=== PATIENT | male | born 1990 | race Caucasian/White ===

== ENCOUNTER 2023-05-15 00:26 | Emergency (ER) | payer BC ==
[2023-05-15] MEDS ORDERED: fentaNYL 50 mcg/mL 1 mL Vial ONE (01:29)
[2023-05-15] MEDS ORDERED: Ondansetron PF 4 MG/2 ML Vial ONE ×2 (01:29→01:39)
[2023-05-15] MEDS ORDERED: Boostrix 0.5 ML (Tdap) VIAL (>/=7 yrs of age) ONE (01:29)
[2023-05-15] MEDS ORDERED: Ketorolac Tromethamine 30 MG/ML VIAL ONE (01:29)
== END 2023-05-15 03:44 | disposition home or self-care (01) ==
LOC: ERS 00:26
DX: S82.852A Displaced trimalleolar fracture of left lower leg, initial encounter for closed fracture (principal); I10 Essential (primary) hypertension; J45.909 Unspecified asthma, uncomplicated; F17.290 Nicotine dependence, other tobacco product, uncomplicated; Z23 Encounter for immunization; Y93.89 Activity, other specified
CPT/HCPCS: 90715; J1885; J2405; J3010

== ENCOUNTER 2023-05-15 04:56 | Observation (INO) | payer OTHER, BC ==
[2023-05-15] MEDS ORDERED: fentaNYL 50 mcg/mL 1 mL Vial ONE ×2 (05:10)
[2023-05-15] MEDS ORDERED: Ondansetron PF 4 MG/2 ML Vial ONE ×2 (05:10→10:41)
[2023-05-15] MEDS ORDERED: Ketamine 50 MG/ML (10ML VIAL) ONE (05:10)
[2023-05-15] MEDS ORDERED: Morphine 4 MG/ML VIAL ONE (06:13)
[2023-05-15 06:48] LABS: #Monocytes 0.9 thou/uL (0.11-0.59); #Neutrophils 9.8 thou/uL (1.40-6.50); %Basophils 0.3 % (0.0-1.0); %Eosinophils 0.1 % (0.0-10.0); %Lymphocytes 7.2 % (21.0-51.0); %Monocytes 7.5 % (0.0-10.0); %Neutrophils 84.5 % (42.0-75.0); Hemoglobin 12.5 g/dL (14.0-18.0); Mean Corpuscular Hemoglobin 27.7 pg (27.0-31.0); Mean Corpuscular Volume 83.8 fl (78.0-98.0); Mean Platelet Volume 10.5 fL (7.4-10.4); Platelet Count 218 10x3/uL (130-400); Red Blood Cell (RBC) Count 4.52 mill/uL (4.70-6.10); White Blood Cell (WBC) Count 11.5 10x3/uL (4.8-10.8)
[2023-05-15 07:07] LABS: INR-International Normal Ratio 1.1; PTT 28.7 sec (22.9-36.1); Prothrombin Time 14.9 sec (12.0-14.7)
[2023-05-15 07:14] LABS: ALT (SGPT) 23 U/L (8-55); AST (SGOT) 19 U/L (5-34); Albumin 4.1 g/dL (3.5-5.0); Alcohol 125.9 mg/dL (Less than 10); Alkaline Phosphatase 56 U/L (40-110); Anion Gap 10 mmol/L (10-20); BUN (Urea Nitrogen) 9 mg/dL (8.9-20.6); Bilirubin, Total 0.4 mg/dL (0.2-1.2); Calc. Creatinine Clearance 0 mL/min (70-130); Calcium 8.4 mg/dL (7.8-10.44); Carbon Dioxide 22 mmol/L (22-29); Chloride 113 mmol/L (98-107); Estimated GFR 95; Globulin 2.4 g/dL (2.4-3.5); Glucose 125 mg/dL (70-105); Potassium 3.9 mmol/L (3.5-5.1); Protein, Total 6.5 g/dL (6.0-8.3); Sodium 141 mmol/L (136-145)
[2023-05-15] MEDS ORDERED: D5 1/2 NS w/20 mEq KCL 1,000 ML IV SCH (07:30)
[2023-05-15] MEDS ORDERED: Glucagon 1 MG/ML KIT IM PRN (08:20)
[2023-05-15] MEDS ORDERED: Ondansetron PF 4 MG/2 ML Vial IVP PRN ×2 (08:20→11:30)
[2023-05-15] MEDS ORDERED: Ondansetron ODT 4 MG TAB PO PRN (08:20)
[2023-05-15] MEDS ORDERED: Dextrose 50% Abboject 50 ML SYRINGE SLOW IVP PRN (08:20)
[2023-05-15] MEDS ORDERED: hydrALAZINE 20 MG/ML VIAL SLOW IVP PRN (08:20)
[2023-05-15] MEDS ORDERED: Morphine 2 MG/ML VIAL SLOW IVP PRN (08:20)
[2023-05-15] MEDS ORDERED: Ipratropium/Albuterol 3 ML NEB NEB PRN (08:20)
[2023-05-15] MEDS ORDERED: Dextrose 5% in Water 1,000 ML IV PRN (08:20)
[2023-05-15] MEDS ORDERED: Morphine 4 MG/ML VIAL SLOW IVP PRN (08:21)
[2023-05-15] MEDS ORDERED: traMADol HCl 50 MG TAB PO PRN (08:22)
[2023-05-15] MEDS ORDERED: Cyclobenzaprine 10 MG TAB PO PRN (08:22)
[2023-05-15] MEDS ORDERED: Sodium Chloride 0.9% 1,000 ML IV SCH (08:30)
[2023-05-15 08:51] VITALS: BMI 32.7
[2023-05-15] MEDS: Acetaminophen 500 MG TAB PO SCH ×3 (08:52→21:21)
[2023-05-15] MEDS: Senokot S 8.6-50 MG TAB PO SCH ×2 (08:52→21:21)
[2023-05-15] MEDS: Polyethylene Glycol 3350 17 GM Packet PO SCH (08:52)
[2023-05-15] MEDS: Famotidine 20 MG TAB PO SCH ×2 (08:52→21:21)
[2023-05-15] MEDS ORDERED: Acetaminophen 325 MG TAB ONE (09:12)
[2023-05-15] MEDS ORDERED: CEFAZOLIN 2 GM VIAL ONE (09:12)
[2023-05-15] MEDS ORDERED: Sodium Chloride 0.9% 100 ML ONE (09:13)
[2023-05-15] MEDS ORDERED: Fentanyl 250 MCG/5 ML VIAL ONE (10:12)
[2023-05-15] MEDS ORDERED: Dexamethasone 20 MG/5 ML VIAL ONE (10:41)
[2023-05-15] MEDS ORDERED: PROPOFOL 200 MG/20 ML VIAL ONE (10:41)
[2023-05-15] MEDS ORDERED: Rocuronium Bromide 10 MG/ML (10ML VIAL) ONE (10:41)
[2023-05-15] MEDS ORDERED: Lidocaine 1% PF 5 ML VIAL ONE (10:41)
[2023-05-15] MEDS ORDERED: Meperidine HCl/PF 25 MG/ML VIAL SLOW IVP PRN (11:15)
[2023-05-15] MEDS ORDERED: Promethazine HCl 25 MG/ML VIAL IM PRN (11:15)
[2023-05-15] MEDS ORDERED: Ondansetron HCl/PF 4 MG/2 ML Vial IVP PRN (11:15)
[2023-05-15] MEDS ORDERED: Ketorolac Tromethamine 30 MG/ML VIAL IVP PRN (11:15)
[2023-05-15] MEDS ORDERED: HYDROmorphone 2 MG/ML VIAL SLOW IVP PRN (11:15)
[2023-05-15] MEDS ORDERED: Bupivacaine PF 0.5% 30 ML VIAL ONE ×2 (11:24→12:25)
[2023-05-15] MEDS ORDERED: Ondansetron ODT 4 MG TAB SL PRN (11:30)
[2023-05-15] MEDS ORDERED: Albuterol 200 PUFF (6.7GM INHALER) INH PRN (12:02)
[2023-05-15] MEDS ORDERED: SUGAMMADEX SODIUM 200 MG/2 ML VIAL ONE (12:39)
[2023-05-15] MEDS ORDERED: HYDROmorphone 2 MG/ML VIAL ONE (12:44)
[2023-05-15] MEDS: Ketorolac Tromethamine 30 MG/ML VIAL IVP SCH ×2 (13:43→18:17)
[2023-05-15] MEDS: traMADol HCl 50 MG TAB PO SCH ×2 (13:44→18:18)
[2023-05-15] MEDS ORDERED: Ketorolac Tromethamine 30 MG/ML VIAL ONE (13:46)
[2023-05-15] MEDS ORDERED: CEFAZOLIN 2 GM in Sodium Chloride 0.9% 100 ML IVPB SCH (14:00)
[2023-05-15] MEDS: Morphine 4 MG/ML VIAL SLOW IVP PRN (16:30)
[2023-05-15] MEDS: CEFAZOLIN 2 GM in Sodium Chloride 0.9% 100 ML IVPB SCH (18:16)
[2023-05-16] MEDS: traMADol HCl 50 MG TAB PO SCH ×3 (00:55→13:47)
[2023-05-16] MEDS: Ketorolac Tromethamine 30 MG/ML VIAL IVP SCH ×3 (00:55→13:47)
[2023-05-16] MEDS: Morphine 4 MG/ML VIAL SLOW IVP PRN (00:56)
[2023-05-16] MEDS: CEFAZOLIN 2 GM in Sodium Chloride 0.9% 100 ML IVPB SCH (00:56)
[2023-05-16] MEDS: Acetaminophen 500 MG TAB PO SCH ×3 (05:03→15:49)
[2023-05-16 05:53] LABS: #Neutrophils 6.8 thou/uL (1.40-6.50); %Basophils 0.1 % (0.0-1.0); %Eosinophils 0.2 % (0.0-10.0); %Lymphocytes 13.6 % (21.0-51.0); %Monocytes 11.3 % (0.0-10.0); %Neutrophils 74.5 % (42.0-75.0); Hemoglobin 11.3 g/dL (14.0-18.0); Mean Corpuscular HGB CONC 32.8 g/dL (32.0-36.0); Mean Corpuscular Hemoglobin 27.7 pg (27.0-31.0); Mean Corpuscular Volume 84.6 fl (78.0-98.0); Mean Platelet Volume 10.5 fL (7.4-10.4); Platelet Count 183 10x3/uL (130-400); RBC Distribution Width 14.5 % (11.5-14.5); Red Blood Cell (RBC) Count 4.08 mill/uL (4.70-6.10); White Blood Cell (WBC) Count 9.2 10x3/uL (4.8-10.8)
[2023-05-16 06:12] LABS: Anion Gap 10 mmol/L (10-20); BUN (Urea Nitrogen) 12 mg/dL (8.9-20.6); Calc. Creatinine Clearance 210 mL/min (70-130); Calcium 8.3 mg/dL (7.8-10.44); Carbon Dioxide 24 mmol/L (22-29); Chloride 106 mmol/L (98-107); Estimated GFR 120; Glucose 122 mg/dL (70-105); Potassium 3.8 mmol/L (3.5-5.1); Sodium 136 mmol/L (136-145)
[2023-05-16] MEDS ORDERED: Venlafaxine XR 37.5 MG CAP PO SCH (09:00)
[2023-05-16] MEDS: Famotidine 20 MG TAB PO SCH (09:12)
[2023-05-16] MEDS: Polyethylene Glycol 3350 17 GM Packet PO SCH (09:13)
[2023-05-16] MEDS: Senokot S 8.6-50 MG TAB PO SCH (09:13)
[2023-05-16 15:55] VITALS: BP 120/72; TEMP 98
== END 2023-05-16 17:56 | disposition home or self-care (01) ==
LOC: ERS 04:56 → SJJU 06:25 → INTOOBSV 06:25
PROVIDERS: ADMIT Surgery; ATTEND Surgery
PROC: 0QSJ04Z Reposition Right Fibula with Internal Fixation Device, Open Approach (ICD-10-PCS; principal; 2023-05-15)
PROC: 0QSG0ZZ Reposition Right Tibia, Open Approach (ICD-10-PCS; 2023-05-15)
DX: S82.852A Displaced trimalleolar fracture of left lower leg, initial encounter for closed fracture (principal); J45.909 Unspecified asthma, uncomplicated; E78.00 Pure hypercholesterolemia, unspecified; F41.9 Anxiety disorder, unspecified; Z79.899 Other long term (current) drug therapy; V86.55XA Driver of 3- or 4- wheeled all-terrain vehicle (ATV) injured in nontraffic accident, initial encounter
CPT/HCPCS: 27788; 36415; 71045; 80048; 80053; 80307; 85025; 85610; 85730; 90471; 90715; 93005; 96372; 96374; 96375; 96376; 99152; 99153; C1713; G0378; G0390; J1100; J1170; J1650; J1885; J2270; J2405; J2704; J3010; J3490; S0020